=== PATIENT | female | born 1975 | race Caucasian/White ===

== ENCOUNTER 2022-06-24 01:53 | Inpatient (IN) | payer SELFPAY ==
[2022-06-24] VITALS (27 sets, daily range): BP systolic 95–133; BP diastolic 54–90; PULSE 46–80; RESP 12–22; TEMP 35.6–36.8; O2SAT 92–98; BMI 34.3
--- NOTE | 2022-06-24 02:07 | ECG_ITS ---
[facility] Test Date: 2022-06-24 Pat Name: Melina Ortiz Department: Room: Gender: Female Front Desk Admin: : 1975 Requested By: Yeyo Baxter Order Number: [id number] Pelaez MD: Krupa Welch M.D. Measurements Intervals [place] Rate: 58 P: 58 ID: [id number] QRS: -37 QRSD: 94 T: 117 QT: 413 QTc: 407 Interpretive Statements SINUS BRADYCARDIA POSSIBLE LEFT ATRIAL ENLARGEMENT [-0.1mV P-WAVE IN V1/V2] LEFT AXIS DEVIATION [QRS AXIS < -30] NONSPECIFIC ST & T-WAVE ABNORMALITY No previous ECG available for comparison Electronically Signed On 06-24-2022 8:38:18 DISH TECHNICIAN by Krupa Welch M.D. [id number]
--- NOTE | 2022-06-24 02:10 | XRR_ITS ---
PROCEDURE INFORMATION: Exam: XR Chest Exam date and time: 06/24/2022 2:18 AM Age: 46 years old Clinical indication: Pain; Chest pressure; Additional info: Cp TECHNIQUE: Imaging protocol: Radiologic exam of the chest. Views: 1 view. COMPARISON: No relevant prior studies available. FINDINGS: Lungs: Unremarkable. No consolidation. Pleural spaces: Unremarkable. No pleural effusion. No pneumothorax. Heart/Mediastinum: Unremarkable. No cardiomegaly. Bones/joints: Unremarkable. XR/XR chest 1V portable 22013 IMPRESSION: No acute findings.
[2022-06-24 02:19] LABS: Basophils % 0.5 %; Eosinophils # 0.3 10^3/uL (0.0-0.8); Eosinophils % 3.4 %; Hemoglobin 15.5 g/dL (11.5-15.3); Mean Corpuscular HGB Conc 32.3 g/dL (30.0-36.0); Mean Corpuscular Hemoglobin 29.8 pg (28.0-34.0); Mean Corpuscular Volume 92.3 fl (81-99); Mean Platelet Volume 9.6 fL (7.4-10.4); Monocytes # 0.4 10^3/uL (0.2-0.9); Monocytes % 5.3 %; Neutrophils # 3.95 10^3/uL (1.8-7.7); Neutrophils % 51.4 %; Nucleated Red Blood Cells % 0 %; Platelet Count 288 10^3/cmm (130-400); Red Cell Distribution Width 12.8 % (12.1-15.1); White Blood Count 7.7 10^3/uL (4.0-10.0)
--- NOTE | 2022-06-24 02:20 | ED_ITS ---
Documented by User: Yeyo Davis DO 06/24/22 18:43 HPI - Chest Pain General: Chief Complaint: Chest Pain Stated Complaint: CP Time Seen by Provider: 06/24/22 02:09 History of Present Illness: 46-year-old female complaining of chest discomfort while lying down this morning. This was around 1 AM. She evidently has a history of coronary disease with stents placed 5 years ago. She was given aspirin and nitroglycerin with some improvement by EMS in route. She still complains of pressure. No fever. MD complaint: chest pain Pertinent past history: coronary artery disease Onset (ago): minute(s) Timing of current episode: constant and still present Prior episodes: Yes ( heartburn on and off past 2 days) Onset: during rest Pain location: substernal Pain radiation: neck and jaw/teeth Severity: moderate Quality: aching and heaviness Relieving factors: nitroglycerin Exacerbating factors: nothing Associated symptoms: Reports diaphoresis, dyspnea and nausea; Deny abdominal pain, fever(s), leg edema, palpitations or vomiting Treatment prior to arrival: aspirin and nitroglycerin Review of Systems Const: Reports: diaphoresis; Denies: fever(s) Eyes: Reports: change in vision ENMT: Reports: throat pain Card: Denies: palpitations Resp: Reports: dyspnea GI: Reports: nausea; Denies: abdominal pain or vomiting [facility] ED PFSH: Medical History Coronary artery disease Obesity Tobacco use disorder Family History Father CAD (coronary artery disease) Social History Smoking and tobacco status: current every day smoker Alcohol intake: never Substance/Drug Use: never Female Reproductive History: Date of last menstrual period: 06/24/22 Physical Exam Const: COMMON NORMALS: no acute distress GENERAL APPEARANCE: cooperative; not ill appearing and not frail appearing HENMT: COMMON NORMALS: normocephalic, atraumatic and Normal external nose present HEAD & SCALP: normocephalic and atraumatic FACE & SINUS: normal facial exam and face symmetric NOSE: Normal external nose present Eye: COMMON NORMALS: Equal, round and reactive pupils present and EOMs intact bilaterally PUPIL: Yes Equal, round and reactive pupils present Neck/C-Spine: GENERAL: Yes trachea midline Chest: CHEST: Yes Symmetrical chest wall rise Resp: COMMON NORMALS: normal respiratory effort, No retractions, No use of accessory muscles and clear to auscultation bilaterally AUSCULTATION: clear to auscultation bilaterally Cardio: COMMON NORMALS: regular rate and regular rhythm RATE: regular rate RHYTHM: regular rhythm GI: COMMON NORMALS: Normal to inspection, nondistended, normoactive bowel sounds present Extremity: COMMON NORMALS: no pedal edema Neuro: JOSHUA COMA SCALE: document GCS findings [place] coma scale eye opening: Spontaneous [place] coma scale verbal response: Orientated Joshua coma scale motor response: Obey commands Joshua coma scale total score: 15 SENSORY EXAM: Yes extremities (intact) Psych: COMMON NORMALS: speech normal SPEECH: Yes normal speech Skin: COMMON NORMALS: no rashes or lesions noted GENERAL SKIN EXAM: no ra shes or lesions noted Course Vital Signs: Vital signs: Vital Signs Temperature 97.9 F 06/24/22 16:00 Pulse Rate 69 06/24/22 16:00 Respiratory Rate 18 06/24/22 16:00 Blood Pressure 105/60 06/24/22 16:00 Pulse Oximetry 98 06/24/22 16:00 Oxygen Delivery Me thod 06/24/22 16:00 MDM - Chest Pain Medical Decision Making Patient has been bradycardic while resting here. Rates in the mid 40s. Blood pressure at home 100/55. Saturation is 98%. Hemoglobin is 15.5. CBC otherwise normal. Her first troponin is 6. CK is 54. Other laboratory not remarkable. EKG shows sinus bradycardia with a slight left axis deviation. No acute ST change. Intervals are normal. Rate is 60. Second troponin is pending. Pain is resolved after morphine here. 2nd troponin is significantly elevated over the 1st. She is pain free now. She continues to smoke tobacco. This increases her risk of in-stent stenosis. She has also not been taking medication for secondary prevention,. She will be admitted. She is given plavix and lovenox for medical treatment of Non-Stemi and Will continue to follow troponin. Lab Data 06/24/22 02:05 06/24/22 02:05 Radiology Impressions Chest X-Ray 06/24/22 02:10 IMPRESSION: No acute findings. Laboratory Results WBC 7.7 10^3/uL (4.0-10.0) 06/24/22 02:05 RBC 5.20 10^6/uL (4.1-5.3) 06/24/22 02:05 Hgb 15.5 g/dL (11.5-15.3) H 06/24/22 02:05 Hct 48.0 % (37.0-47.0) H 06/24/22 02:05 MCV 92.3 fl (81-99) 06/24/22 02:05 MCH 29.8 pg (28.0-34.0) 06/24/22 02:05 MCHC 32.3 g/dL (30.0-36.0) 06/24/22 02:05 RDW 12.8 % (12.1-15.1) 06/24/22 02:05 Plt Count 288 10^3/cmm (130-400) 06/24/22 02:05 MPV 9.6 fL (7.4-10.4) 06/24/22 02:05 Neut % (Auto) 51.4 % 06/24/22 02:05 Lymph % (Auto) 39.0 % 06/24/22 02:05 [place] % (Auto) 5.3 % 06/24/22 02:05 Eos % (Auto) 3.4 % 06/24/22 02:05 Baso % (Auto) 0.5 % 06/24/22 02:05 Neut # (Auto) 3.95 10^3/uL (1.8-7.7) 06/24/22 02:05 Lymph # (Auto) 3.0 10^3/uL (0.8-4.8) 06/24/22 02:05 Merrick # (Auto) 0.4 10^3/uL (0.2-0.9) 06/24/22 02:05 Eos # (Auto) 0.3 10^3/uL (0.0-0.8) 06/24/22 02:05 Baso # (Auto) 0.0 10^3/uL (0.0-0.1) 06/24/22 02:05 Nucleated RBC % (auto) 0 % 06/24/22 02:05 Nucleated RBCs # 0.0 /100WBC 06/24/22 02:05 Sodium 134 mmol/L (136-145) L 06/24/22 02:05 Potassium 3.9 mmol/L (3.5-5.1) 06/24/22 02:05 Chloride 98 mmol/L (98-107) 06/24/22 02:05 Carbon Dioxide 26 mmol/L (22-29) 06/24/22 02:05 Anion Gap 13.9 (5-19) 06/24/22 02:05 BUN 18 mg/dL (6-20) 06/24/22 02:05 Creatinine 0.9 mg/dL (0.5-0.9) 06/24/22 02:05 GFR Calculation 67.4 mL/min (90-130) L 06/24/22 02:05 Glucose 162 mg/dL (65-115) H 06/24/22 02:05 Estimat Average Glucose 114 06/24/22 02:05 Hemoglobin A1c 5.6 % (4.0-6.0) 06/24/22 02:05 Calculated Osmolality 283 mOsm/kg (285-295) L 06/24/22 02:05 Calcium 9.4 mg/dL (8.5-10.5) 06/24/22 02:05 Total Bilirubin 0.2 mg/dL (0.15-1.2) 06/24/22 02:05 AST 18 U/L (0-32) 06/24/22 02:05 ALT 15 U/L (0-33) 06/24/22 02:05 Alkaline Phosphatase 98 U/L (35-105) 06/24/22 02:05 Creatine Kinase 54 U/L (26-192) 06/24/22 02:05 Troponin T Baseline 6 ng/L (0-10) 06/24/22 02:05 Troponin T 120 Minute 13.77 ng/L (0-10) H 06/24/22 04:27 Delta Troponin T 7.77 ABS# (0-10) 06/24/22 04:27 NT-Pro-B Natriuret Pep 36 pg/mL (0-125) 06/24/22 02:05 Total Protein 6.8 g/dL (6.6-8.7) 06/24/22 02:05 Albumin 4.4 g/dL (3.5-5.2) 06/24/22 02:05 Globulin 2.4 g/dL (1.3-4.6) 06/24/22 02:05 Triglycerides 87 mg/dL (0-150) 06/24/22 02:05 Cholesterol 369 mg/dL (0-200) H 06/24/22 02:05 LDL Cholesterol, Calc 279 mg/dL (50-129) H 06/24/22 02:05 HDL Cholesterol 73 mg/dL (60-100) 06/24/22 02:05 LDL/HDL Ratio 3.82 RATIO (0.00-3.22) H 06/24/22 02:05 Cholesterol/HDL Ratio 5.05 mg/dL (0.0-4.40) H 06/24/22 02:05 Discharge Plan Discharge Patient Disposition: Admitted As Inpatient Admit Provider: Sahil Hill Clinical Impression: Non-ST elevation myocardial infarction (NSTEMI), Coronary artery disease, Chest pain Condition: Stable Coding Level of Care Code ED Auditor Medical Claims for Chg Fwd Documented by User: Sahil Hill MD 06/24/22 03:14 HPI - Chest Pain General: Chief Complaint: Chest Pain Stated Complaint: CP Time Seen by Provider: 06/24/22 02:09 [facility] ED PFSH: Medical History Coronary artery disease Obesity Tobacco use disorder Family History Father CAD (coronary artery disease) Social History Smoking and tobacco status: current every day smoker Alcohol intake: never Substance/Drug Use: never Physical Exam Neuro: JOSHUA COMA SCALE: document GCS findings Joshua coma scale total score: 15 Course Vital Signs: Vital signs: Vital Signs Temperature 97.9 F 06/24/22 16:00 Pulse Rate 69 06/24/22 16:00 Respiratory Rate 18 06/24/22 16:00 Blood Pressure 105/60 06/24/22 16:00 Pulse Oximetry 98 06/24/22 16:00 Oxygen Delivery Me thod 06/24/22 16:00 MDM - Chest Pain Lab Data 06/24/22 02:05 06/24/22 02:05 Radiology Impressions Chest X-Ray 06/24/22 02:10 IMPRESSION: No acute findings. Laboratory Results WBC 7.7 10^3/uL (4.0-10.0) 06/24/22 02:05 RBC 5.20 10^6/uL (4.1-5.3) 06/24/22 02:05 Hgb 15.5 g/dL (11.5-15.3) H 06/24/22 02:05 Hct 48.0 % (37.0-47.0) H 06/24/22 02:05 MCV 92.3 fl (81-99) 06/24/22 02:05 MCH 29.8 pg (28.0-34.0) 06/24/22 02:05 MCHC 32.3 g/dL (30.0-36.0) 06/24/22 02:05 RDW 12.8 % (12.1-15.1) 06/24/22 02:05 Plt Count 288 10^3/cmm (130-400) 06/24/22 02:05 MPV 9.6 fL (7.4-10.4) 06/24/22 02:05 Neut % (Auto) 51.4 % 06/24/22 02:05 Lymph % (Auto) 39.0 % 06/24/22 02:05 Merrick % (Auto) 5.3 % 06/24/22 02:05 Eos % (Auto) 3.4 % 06/24/22 02:05 Baso % (Auto) 0.5 % 06/24/22 02:05 Neut # (Auto) 3.95 10^3/uL (1.8-7.7) 06/24/22 02:05 Lymph # (Auto) 3.0 10^3/uL (0.8-4.8) 06/24/22 02:05 [place] # (Auto) 0.4 10^3/uL (0.2-0.9) 06/24/22 02:05 Eos # (Auto) 0.3 10^3/uL (0.0-0.8) 06/24/22 02:05 Baso # (Auto) 0.0 10^3/uL (0.0-0.1) 06/24/22 02:05 Nucleated RBC % (auto) 0 % 06/24/22 02:05 Nucleated RBCs # 0.0 /100WBC 06/24/22 02:05 Sodium 134 mmol/L (136-145) L 06/24/22 02:05 Potassium 3.9 mmol/L (3.5-5.1) 06/24/22 02:05 Chloride 98 mmol/L (98-107) 06/24/22 02:05 Carbon Dioxide 26 mmol/L (22-29) 06/24/22 02:05 Anion Gap 13.9 (5-19) 06/24/22 02:05 BUN 18 mg/dL (6-20) 06/24/22 02:05 Creatinine 0.9 mg/dL (0.5-0.9) 06/24/22 02:05 GFR Calculation 67.4 mL/min (90-130) L 06/24/22 02:05 Glucose 162 mg/dL (65-115) H 06/24/22 02:05 Estimat Average Glucose 114 06/24/22 02:05 Hemoglobin A1c 5.6 % (4.0-6.0) 06/24/22 02:05 Calculated Osmolality 283 mOsm/kg (285-295) L 06/24/22 02:05 Calcium 9.4 mg/dL (8.5-10.5) 06/24/22 02:05 Total Bilirubin 0.2 mg/dL (0.15-1.2) 06/24/22 02:05 AST 18 U/L (0-32) 06/24/22 02:05 ALT 15 U/L (0-33) 06/24/22 02:05 Alkaline Phosphatase 98 U/L (35-105) 06/24/22 02:05 Creatine Kinase 54 U/L (26-192) 06/24/22 02:05 Troponin T Baseline 6 ng/L (0-10) 06/24/22 02:05 Troponin T 120 Minute 13.77 ng/L (0-10) H 06/24/22 04:27 Delta Troponin T 7.77 ABS# (0-10) 06/24/22 04:27 NT-Pro-B Natriuret Pep 36 pg/mL (0-125) 06/24/22 02:05 Total Protein 6.8 g/dL (6.6-8.7) 06/24/22 02:05 Albumin 4.4 g/dL (3.5-5.2) 06/24/22 02:05 Globulin 2.4 g/dL (1.3-4.6) 06/24/22 02:05 Triglycerides 87 mg/dL (0-150) 06/24/22 02:05 Cholesterol 369 mg/dL (0-200) H 06/24/22 02:05 LDL Cholesterol, Calc 279 mg/dL (50-129) H 06/24/22 02:05 HDL Cholesterol 73 mg/dL (60-100) 06/24/22 02:05 LDL/HDL Ratio 3.82 RATIO (0.00-3.22) H 06/24/22 02:05 Cholesterol/HDL Ratio 5.05 mg/dL (0.0-4.40) H 06/24/22 02:05 Discharge Plan Discharge Patient Disposition: Admitted As Inpatient Admit Provider: Sahil Hill Clinical Impression: Non-ST elevation myocardial infarction (NSTEMI), Coronary artery disease, Chest pain Condition: Stable Coding Level of Care Code ED Auditor Medical Claims for Radha De Santiago
[2022-06-24 02:42] LABS: Troponin(5th) Baseline 6 ng/L (0-10)
[2022-06-24 02:51] LABS: Alanine Aminotransferase 15 U/L (0-33); Albumin Level 4.4 g/dL (3.5-5.2); Alkaline Phosphatase 98 U/L (35-105); Aspartate Amino Transferase 18 U/L (0-32); Blood Urea Nitrogen 18 mg/dL (6-20); Calcium 9.4 mg/dL (8.5-10.5); Carbon Dioxide 26 mmol/L (22-29); Chloride 98 mmol/L (98-107); Creatine Phosphokinase 54 U/L (26-192); Globulin 2.4 g/dL (1.3-4.6); Glomerular Filtration Rate 67.4 mL/min (90-130); Glucose 162 mg/dL (65-115); NT Pro B Type Natriuretic Pept 36 pg/mL (0-125); Osmolality Calculated 283 mOsm/kg (285-295); Sodium 134 mmol/L (136-145); Total Bilirubin 0.2 mg/dL (0.15-1.2); Total Protein 6.8 g/dL (6.6-8.7)
[2022-06-24 02:56] LABS: Anion Gap 13.9 (5-19); Potassium 3.9 mmol/L (3.5-5.1)
[2022-06-24] MEDS: ondansetron 2 mg/ML SDV 2 mL 4 MG IVP (03:05)
[2022-06-24] MEDS: morphine 4 mg/mL SDV 1 mL IVP (03:05)
[2022-06-24 04:51] LABS: Troponin 5 2HR 13.77 ng/L (0-10)
[2022-06-24 04:59] LABS: Troponin 5 2HR Delta 7.77 ABS# (0-10)
--- NOTE | 2022-06-24 05:34 | PM.HP ---
Providers/Chief Complaint Admitting Physician: Sahil Hill MD Chief Complaint: CP History of Present Illness Melina Ortiz is a 46 year old female with a past medical history significant for coronary artery disease with history of 3 prior stents approximately 5 years ago, tobacco use disorder, and obesity who presents to the emergency department with substernal chest pressure. Patient reports onset at 1 AM this morning while lying down try to go to sleep. She endorses radiation to the left side of her neck. She endorses associated symptoms of nausea, shortness of breath, and numbness/tingling in all 4 extremities. She does report a history of a prior myocardial infarction approximately 5 years ago which was treated with 3 stents. She states that current symptoms are identical to her symptoms when she had her heart attack. In the emergency department, she was treated with morphine and states that this improved her pain. She is currently on about a 2 out of 10. Denies other alleviating or aggravating factors. Endorses family history of heart disease in her father and 3 of her 4 grandparents. Chart review shows that patient did have a mid RCA occlusion requiring PCI on 09/26/[address] Pozo. She reports that she continues to smoke. She reports that she smokes about 1 pack of cigarettes per day. She has somewhat a desire to quit but has never quit before. Smoking cessation discussed. Discussed harmful effects on her heart. Nicotine patch offered and declined. Review of Systems Narrative: A complete review of systems was obtained and is negative except as stated in HPI. PFSH Acute PFSH: Medical History Coronary artery disease Obesity Tobacco use disorder Family History Father CAD (coronary artery disease) Social History Smoking and tobacco status: current every day smoker Alcohol intake: never Substance/Drug Use: never Female Reproductive History: Date of last menstrual period: 06/24/22 Vitals/I&O/Wt Last Vital Signs Temp 96.1 F L 06/24/22 01:58 Pulse 46 L 06/24/22 04:36 Resp 19 H 06/24/22 04:36 BP 95/54 06/24/22 04:36 Pulse Ox 97 06/24/22 04:36 O2 Del Method 02/06/23 04:36 Weight last 48 hrs Weight 90.718 kg Physical Exam Narrative: General: Patient is awake. Appears fatigued. Head: Normocephalic. Atraumatic. EOM intact. Neck: No JVD. Cardiovascular: RRR. No gallops. No murmurs. No peripheral edema. Lungs: Clear to auscultation, no use of accessory muscles, no crackles or wheezes. Skin: No jaundice. No rashes. Abdomen: Normal bowel sounds, abdomen soft and nontender. Genito Urinary: Genital exam not performed since complaints not related. Rectal: Rectal exam not performed since no symptoms indicated blood loss. Extremities: No cyanosis or clubbing. Musculoskeletal: No swollen or erythematous joints. Neurological: Moves all 4 extremities. No myoclonus. Data 06/24/22 02:05 06/24/22 02:05 A&P Assessment and plan (1) Coronary artery disease: Chest pain concerning for unstable angina Started on therapeutic Lovenox in ED, will continue Loaded with Plavix in ED Plavix ordered Aspirin High intensity statin Nitroglycerin as needed Hold beta-paul due to bradycardia Echocardiogram Telemetry monitoring Trend troponins Bedrest Dissipate cardiology consultation N.p.o. pending cardiology evaluation Lipid panel and A1c for restratification Reconcile home medications once updated (2) Tobacco use disorder: Patient counseled on smoking cessation for 4 minutes Decline nicotine patch (3) Obesity: Would benefit from weight loss Plan DVT prophylaxis: Lovenox CODE STATUS: Full code Attestations Medical Necessity Statement*: Patient presents with chest pain consistent with prior CO symptoms with expected hospitalization to cross 2 midnights. Coding Level of Care Code Acute Code for [facility] Fwd Diagnoses Coronary artery disease I25.10 Tobacco use disorder F17.200 Obesity E66.9
[2022-06-24] MEDS: clopidogrel 300 mg Tablet PO (05:56)
[2022-06-24] MEDS: enoxaparin 100 mg/mL Syringe 90 MG SUBCUT (05:56)
--- NOTE | 2022-06-24 06:22 | USCV_ITS ---
Melina Ortiz Age: 46 Gender: F : 1975 Exam Date: 06/24/2022 13:45 Ordering Phys: Sahil Hill MD Technologist: Johnny Salas Exam Location: [facility] [place] Indication: Post cath BP: 122 / 59 HR: 60 Rhythm: Sinus Technical Quality: Adequate MEASUREMENTS (Male / Female) Normal Values 2D ECHO LV Diastolic Diameter PLAX 4.4 cm 4.2 - 5.9 / 3.9 - 5.3 cm LV Systolic Diameter PLAX 2.8 cm IVS Diastolic Thickness 1.3 cm 0.6 - 1.0 / 0.6 - 0.9 cm IVS Systolic Thickness 1.5 cm LVPW Diastolic Thickness 1.0 cm 0.6 - 1.0 / 0.6 - 0.9 cm LVPW Systolic Thickness 1.3 cm LVOT Diameter 2.1 cm LV Ejection Fraction 2D Teich 64.9 % LV Ejection Fraction MOD 2C 53.6 % LV Ejection Fraction 2C AL 55.2 % LA Diameter 3.9 cm Aorta at Sinotubular Diameter 2.7 cm M-MODE MV E Point Septal Separation 0.8 cm DOPPLER AV Peak Velocity 129.0 cm/s LVOT Peak Velocity 101.0 cm/s AV Area Cont Eq vti 2.6 cm squared AV Area Cont Eq pk 2.6 cm squared MV Area PHT 5.0 cm squared Mitral E to A Ratio 1.3 MV E' Velocity 43.0 cm/s Mitral E to MV E' Ratio 6.3 Mitral E to LV E' Lateral Ratio 5.3 Mitral E to LV E' Septal Ratio 7.7 TR Peak Velocity 165.0 cm/s TR Peak Gradient 10.9 mmHg TV Peak E Velocity 98.0 cm/s Right Atrial Pressure 3.0 mmHg Pulmonary Artery Systolic Pressu 13.9 mmHg PV Peak Velocity 67.0 cm/s RV Acceleration Time 0.2 s FINDINGS Left Ventricle Left ventricle is normal in size. LV systolic function is normal with EF of 50 to 55%. Mild hypokinesis of the inferolateral wall. Diastolic function is normal Right Ventricle Normal in size and function Right Atrium Normal in size Left Atrium Normal in size Mitral Valve Structurally normal mitral valve. Mild mitral regurgitation. Aortic Valve Structurally normal aortic valve. No significant stenosis or regurgitation. Tricuspid Valve Mild tricuspid regurgitation. Pulmonary artery systolic pressure is normal Pulmonic Valve Not well-visualized Pericardium Normal Aorta Normal in size IVC Not well visualized CONCLUSIONS LV systolic function is normal with EF of 50-55%. Mild hypokinesis of the inferolateral wall. Diastolic function is normal Mild mitral regurgitation Mild tricuspid regurgitation No comparison studies are available Guillermo Paulino MD (Electronically Signed) Final Date: 24 June 2022 19:15 S
[2022-06-24 06:58] LABS: Chol HDL Ratio 5.05 mg/dL (0.0-4.40); Cholesterol 369 mg/dL (0-200); HDL Cholesterol 73 mg/dL (60-100); LDL Cholesterol Calculated 279 mg/dL (50-129); LDL HDL Ratio 3.82 RATIO (0.00-3.22); Triglycerides 87 mg/dL (0-150)
[2022-06-24 07:07] LABS: Estmated Average Glucose 114; Hemoglobin A1C 5.6 % (4.0-6.0)
[2022-06-24] MEDS: atorvastatin 40 mg Tablet 80 MG PO ×2 (07:22→20:40)
[2022-06-24] MEDS: pneumococcal (23 valent) SDV 0.5 mL IM (07:41)
--- NOTE | 2022-06-24 07:58 | ECG_ITS ---
[facility] Test Date: 2022-06-24 Pat Name: Melina Ortiz Department: Room: 273 Gender: Female Electric Appliance Installer: : 1975 Requested By: Ahmet Choudhary Order Number: [id number] Latanya MD: Krupa Welch M.D. Measurements Intervals [place] Rate: 60 P: 48 TN: 153 QRS: -22 QRSD: 89 T: 88 QT: 411 QTc: 413 Interpretive Statements SINUS RHYTHM POSSIBLE LEFT ATRIAL ENLARGEMENT [-0.1mV P-WAVE IN V1/V2] INDETERMINATE AXIS INFERIOR MYOCARDIAL INFARCTION , PROBABLY OLD [40+ ms Q WAVE AND/OR ST/T ABNORMALITY IN II/aVF] Compared to ECG 06/24/2022 02:07:03 Indeterminate axis now present Myocardial infarct finding now present Sinus bradycardia no longer present Left-axis deviation no longer present T-wave abnormality no longer present Electronically Signed On 06-24-2022 8:40:29 REAL ESTATE ASSESSOR by Krupa Welch M.D. [id number] f
--- NOTE | 2022-06-24 08:03 | P.PN_ITS ---
Subjective Subjective: Patient was admitted earlier today. She came in with chest discomfort. She relates to me she has a recurrence of chest discomfort, consistent with previous myocardial infarction, pressure in her chest and up into her neck. She states it has been present for about 30 minutes. It is not as severe as when she came in. She previously had relief when aspirin, morphine, nitroglycerin were given. She relates that she has a past history of coronary disease, but has not taken any medicine in quite some time secondary loss of insurance and primary care provider. Medications: Reviewed: Yes Vitals/I&O/Wt Last Vital Signs Temp 98.2 F 06/24/22 07:46 Pulse 49 L 06/24/22 07:46 Resp 16 06/24/22 07:46 BP 107/57 06/24/22 07:46 Pulse Ox 95 06/24/22 07:46 O2 Del Method 06/24/22 07:46 Weight last 48 hrs Weight 90.718 kg Physical Exam Narrative: General exam is white female. She does not appear to be in any distress but relates chest discomfort, in the form of pressure Neck is supple Cardiovascular slightly bradycardic, regular, no murmur Lungs clear no wheezing or crackles Abdomen is soft with positive bowel sounds Extremities no cyanosis clubbing or edema, cap refill brisk Skin no obvious rash Data 06/24/22 02:05 06/24/22 02:05 Other data: I reviewed her EKG done stat, this demonstrates flipped T waves laterally. Some nonspecific ST-T wave changes. It is still sinus rhythm. There is no ST elevation. I reviewed her EKG on admission Previous laboratory I reviewed in full, including her 2-hour troponin. A&P Assessment and plan (1) Non-ST elevation myocardial infarction (NSTEMI): Patient presents with 2-hour troponin elevation doubled out of arrival. This c onstitutes a significant delta. She has been given Plavix, aspirin, statin. She has been fully anticoagulated. Beta-paul was not given secondary to bradycardia. She now has recurrence of her chest discomfort, in the form of pressure consistent with previous myocardial infarction. Cardiology consult currently. I called Dr. Sandoval to discuss the case, arrange the consultation. For now she will remain n.p.o. and will likely have a cath early today. Stat EKG now Nitroglycerin 0.4 mg sublingual now Await 6-hour troponin which is going to be drawn soon Morphine if discomfort does not improve Close follow-up of blood pressure with the above treatment (2) Unstable angina: See above (3) Hyperlipidemia: Lipitor initiated 80 mg daily. This is appropriate (4) Coronary artery disease: See notations under non-ST elevation myocardial infarction Plan Tobacco dependency. Confirmed need for nicotine patch. Attestations Medical Necessity Statement*: Needs continued hospital stay secondary to unstable angina. Critical Care Time: 31 Other Attestations: The high probability of a clinically significant, sudden or life threatening deterioration of the patient's [cardiac] system(s) required my full and direct attention, intervention and personal management. The critical care time is as shown. This time is in addition to time spent performing any reported procedures but includes the following: [x] Data and vital sign review and interpretation [x] Patient assessment, examination and intervention [x] Documentation [x] Medication orders and management Coding Level of Care Code Established Pt Critical Care >/= 30 minutes Critical care time (in minutes): 31 Patient Type Established Diagnoses Non-ST elevation myocardial infarction (NSTEMI) I21.4 Unstable angina I20.0 Hyperlipidemia E78.5 Coronary artery disease I25.10 Time Spent (min) 31
[2022-06-24] MEDS: nitroglycerin 0.4 mg sublingual Tablet SUBLINGUAL (08:07)
--- NOTE | 2022-06-24 08:07 | PM.CONSULT ---
Providers/Reason For Consult Consulting Physician/Specialty*: Guillermo Paulino MD/ Cardiology Reason for Consult*: Unstable angina Requesting Physician: Dr Fowler Attending Physician: Ahmet Fowler MD History of Present Illness History of Present Illness Melina Ortiz is a 46 year old female with past medical history of coronary artery disease with PCI of RCA in the past, tobacco abuse presented to the hospital with substernal chest pain. According to patient she has been having on and off chest discomfort episodes for the last few days however she woke up with chest discomfort last night with numbness and tingling in the arms. This was similar to her prior OK. In the emergency room her troponins were trended and 2-hour troponin was negative. EKG shows sinus rhythm with nonspecific ST-T wave changes. Review of Systems Narrative: CONSTITUTIONAL: No fever chills weight loss or gain or night sweats. [] HEENT: Normocephalic, atraumatic.[] RESPIRATORY: No cough, sputum, hemoptysis or wheezing.[] CARDIOVASCULAR:Chest pain GI: no nausea vomiting diarrhea. [] POLISHER BRASS: No numbness, tingling, weakness or loss of function in any part of the body. [] MUSCULOSKELETAL: No knee or joint pain or rashes. [] Medications/Allergies Allergies Allergy/AdvReac Type Severity Reaction Status Date / Time Penicillins Allergy ALGY-Anaphy Verified 06/24/22 06:46 laxis hydrocodone AdvReac ADR-Nausea Verified 06/24/22 06:46 Current Medications Generic Name Dose Route Start Last Admin Trade Name Freq PRN Reason Stop Dose Admin Atorvastatin Calcium 80 mg 06/24/22 06:25 06/24/22 07:22 Atorvastatin 40 Mg Tablet PO 80 mg BEDTIME BAILEE Administration Nitroglycerin 0.4 mg 06/24/22 06:22 06/24/22 08:07 Nitroglycerin 0.4 Mg Sublingual Tablet SUBLINGUAL 0.4 mg Q5M PRN Administration CHEST PAIN PFSH Acute PFSH: Medical History Coronary artery disease Obesity Tobacco use disorder Family History Father CAD (coronary artery disease) Social History (Reviewed 02/06/23 @ 11:20 by Stephen Srivastava Smoking and tobacco status: current every day smoker Alcohol intake: never Substance/Drug Use: never Female Reproductive History: Date of last menstrual period: 06/24/22 Vitals/I&O/Wt Last Vital Signs Temp 98.2 F 06/24/22 07:46 Pulse 49 L 06/24/22 07:46 Resp 16 06/24/22 07:46 BP 107/57 06/24/22 07:46 Pulse Ox 95 06/24/22 07:46 O2 Del Method 06/24/22 07:46 Weight last 48 hrs Weight 200 lb Physical Exam Narrative: GENERAL: Patient is alert, awake and oriented x3. [] NECK: No jugular vein distension. [] HEENT: No cyanosis. No icterus. No pallor. [] HEART: Regular S1 and S2. No murmur, rub or gallop. [] LUNGS: Clear to auscultate bilaterally. [] ABDOMEN: Soft CENTRAL NERVOUS SYSTEM: Grossly nonfocal. [] EXTREMITIES: Lower extremities with 1+ edema bilaterally. Pulses palpable in the lower extremities, both dorsalis pedis and posterior tibial. [] Data 06/24/22 02:05 06/24/22 02:05 A&P Assessment and plan (1) Unstable angina: (2) Tobacco use disorder: (3) Coronary artery disease: (4) Obesity: (5) Hyperlipidemia: Plan Patient has presented with worsening, typical chest pain consistent with unstable angina. Troponin is negative. 6-hour troponin is pending. Continue aspirin and Plavix. Continue anticoagulation. We will proceed with coronary angiogram with possible percutaneous coronary intervention. Risks and benefits of the procedure have been discussed with the patient. She understands the risks and benefits and wants to proceed. NPO Echocardiogram ordered Thank you for involving us with care of this patient. We will continue to follow. Please call with questions. Consult Attestations Medical Necessity Statement: Care expected to cross 2 midnights. Coding Level of Care Code Acute Code for Chg Fwd Diagnoses Unstable angina I20.0 Tobacco use disorder F17.200 Coronary artery disease I25.10 Obesity E66.9 Hyperlipidemia E78.5
[2022-06-24] MEDS: nitroglycerin 1 gm/inch oint Pkt 0.5 INCH TOPICAL ×3 (08:16→20:40)
--- NOTE | 2022-06-24 08:34 | XACV_ITS ---
Exam Room: [facility] Ht: 163 cm Wt: 91 kg BSA: 2.06 m2 Gender: Female : 1975 Any Known Allergies: Hydrocodone Exam Priority: Routine Procedure(s): Procedure Description: Diagnostic procedure Procedure Description: PCI procedure Procedure Description: Drug Eluting Coronary Stent Procedure Description: PTCA Procedure Description: Coronary Angiography Diagnostic Cath Status: Urgent Diagnostic Findings * INDICATION: Unstable angina. * Left Main has no significant disease. * Left Anterior Descending has mild luminal irregularities. Gives rise to small sized diagonal artery that has moderate ostial lesion. * Circumflex has no significant disease. * RCA has a patent prior mid vessel stent. At proximal edge of the stent in the mid Right Coronary Artery: obstructive 70% stenosis, YASMEEN: 3 flow. * Distal Right Coronary Artery: severe 90% stenosis, YASMEEN: 3 flow. * Coronary angiography shows right dominance. PCI Status: Urgent PCI Indication: Other Interventional Findings * Procedure detail: We engaged RCA with JR4 guide catheter. IV heparin was administered to maintain ACT above 250 S. 0.014 run-through guidewire was used to cross the stenosis and was put in distal vessel. We predilated with distal RCA stenosis with 2.5 x 12 mm semicompliant balloon. Was followed by predilation of mid RCA with 2.5 x 12 mm semicompliant balloon. We then proceeded with placement of 2.5 x 15 mm resolute [place] drug-eluting stent in distal RCA. We then placed 3.5 x 12 mm resolute [place] drug-eluting stent in mid RCA. At this time final angiogram was performed that showed excellent stent expansion, no residual stenosis and YASMEEN-3 flow. Guidewire and guide catheter were removed. Patient left the Flaking Roll Operator in a stable condition.. * Mid Right Coronary Artery: 70% stenosis treated with a AB TREK 2.50X12 RX BALLOON, and MDT R SANTA 3.5X12 SHEFALI. 0% residual stenosis, YASMEEN: 3 flow. * Distal Right Coronary Artery: 90% stenosis treated with a AB TREK 2.50X12 RX BALLOON, and MDT R SANTA 2.5X15 SHEFALI. 0% residual stenosis, YASMEEN: 3 flow. Conclusions 1. Severe mid RCA stenosis s/p successful revascularization with SHEFALI x1. Severe distal RCA stenosis s/p successful revascularization with SHEFALI x1. 2. Mid Right Coronary Artery was treated with a Balloon, and Drug Eluting Stent. 3. Distal Right Coronary Artery was treated with a Balloon, and Drug Eluting Stent. Recommendations * Dual antiplatelet therapy for at least 1 year. * High intensity statin therapy. * Aggressive risk factor modification. * Outpatient cardiology follow-up in 4-weeks. Interventional RX Recommendation: PCI w/o planned CABG Diagnostic RX Recommendation: PCI w/o planned CABG Anticoagulation: Heparin Pressures Phase:Rest AO : 97 / 63 ( 80 ) @ 9:31:00 AM 86 / 49 ( 66 ) @ 9:39:00 AM 91 / 60 ( 75 ) @ 9:41:00 AM 98 / 60 ( 77 ) @ 9:53:00 AM Clinical Evaluation EBL: 5mL-10mL Procedural Details Procedure Consent Obtained. Current Diagnosis : Chest Pain. Pre-Procedure Time Out. Identified patient by full name and date of as verbalized by the patient/guarantor. Does the consent match the physician's order: Yes. Accurate & Complete Informed Consent: Yes. Inpatient/Outpatient History & Physical on Chart: Yes. If H&P is completed, is and addenduem needed: No. Visualize and Verify Site with Patient/Guarantor: N/A. Relevant Radiology Images available: Yes. The risks, benefits, and alternatives of sedation and/or procedure were discussed by physician. The patient agrees to continue. Procedure started. [facility] Clinical Fraility Score: 3: Managing Well. Flaking Roll Operator Indications: Worsening Angina/Unstable Angina. Chest Pain Symptom Assessment: Typical Angina Symptoms. Cardiovascular Instability: No. Correct patient, site and procedure confirmed by cath team. PERRBIGG. Strong, equal hand wheelchair van operator first responder bilaterally. Lungs clear x 5 lobes. IV Site on Arrival: 20 gauge in the left anticubital. IV Fluids: 0.9% NaCl at KVO. 0 mL infused prior to cardiovascular lab director. Pre Procedural Pulses: bilateral dorsalis pedis was 2+. Pre Procedural Pulses: bilateral posterior tibial was 1+. Pre Procedural Pulses: bilateral radial was 3+. Oxygen started at 2liters/min via nasal canula. right groin was prepped with chloroprep then draped in the usual sterile fashion. right radial was prepped with chloroprep then draped in the usual sterile fashion. Physician notified. Patient's spouse in the Flaking Roll Operator waiting room. Dr. Hagan will update at the completion of the procedure. Equipment: 6F - Radial. Cardiac Cath Pack. ACIST Manifold Kit Model BT 2000. Heparinized Saline (2 units/mL), 1000 mL bag. Baseline sample Acquired. HR: 52 BPM. Isaac Logan RN circulating with Senait Lynn RN. Physician arrived. Physician scrubbed in. Immediate Pre-Procedure Time Out. Correct Patient: Yes; Correct Procedure: Yes; Correct Site: Yes; Correct Patient Position: Yes; Correct Supplies: Yes; Dried Flammable Prep: Yes; Blood Products Available: N/A. Lidocaine 1% infiltrated to the right radial. Lab notified this nurse that the 6 hour Delta Trop was 44.36. Dr. Paulino was made known and no orders received at this time. Unable to obtain radial access using ultrasound. attempting to gain access in the Femoral artery. Lidocaine 1% infiltrated to the right groin. Arterial access obtained with micropuncture set. A 5 gibraltarian JL4 catheter in over the exchange J wire. Multiple views taken of left coronary artery. Catheter removed over the exchange J wire. A 5 gibraltarian JR4 catheter in over the exchange J wire. Multiple views taken of right coronary artery. Catheter removed over the exchange J wire. 6 gibraltarian JR 4 guide catheter was inserted over the exchange J wire. Runthrough guidewire was advanced through the guide catheter to lesion in the distal RCA. Inflation number : 1 A AB TREK 2.50X12 RX BALLOON was prepped and advanced across the Dist RCA , then inflated to 6 HEATHER for 0:23 seconds. Inflation number: 2 The AB TREK 2.50X12 RX BALLOON was reinflated across the Dist RCA, to 6 HEATHER for 0:22 seconds. Inflation number: 1 The AB TREK 2.50X12 RX BALLOON was reinflated across the Mid RCA, to 8 HEATHER for 0:13 seconds. Balloon out. Results checked. Inflation Number : 3 A MDT R SANTA 2.5X15 SHEFALI -Lot Number# [id number] was prepped and advanced across the Dist RCA. The stent was deployed at 12 HEATHER for 0:21 seconds. Exp 2024-07-26. Stent balloon and wire out. Inflation Number : 2 A MDT R SANTA 3.5X12 SHEFALI -Lot Number# [id number] was prepped and advanced across the Mid RCA. The stent was deployed at 12 HEATHER for 0:20 seconds. Exp 2024-07-26. Inflation number: 3 The stent balloon was then re-inflated across the Mid RCA to 12 HEATHER for 0:14 seconds. Stent balloon out over wire. ACT drawn. Results 329 seconds. Therapeutic limits - pre-heparin administration 90-150 seconds and monitoring heparin during a vascular procedure >250 seconds. Wire out. Guide catheter out over the exchange J wire. A Right femoral angiogram was performed to determine safe placement of closure device. Angioseal placed without complications. No signs or symptoms of hematoma noted. Sterile dressing applied per usual sterile fashion. Lot # [id number]. Exp 2023-02-15. Lidocaine 1% infiltrated to the right groin. A Angio-Seal VIP ([place]) was successful obtaining hemostatsis at the Right Femoral artery insertion site. Post Procedure: Pulses reassessed and unchanged. PERRLA. Strong, equal hand wheelchair van operator first responder bilaterally. No VTE prophylaxis required. Medication's Wasted: Nitro = 49.8 mg. Medication's Wasted: Heparin = 4000 Units. Medication's Wasted: Other = Versed 1mg. Total IV fluids: 38 mL. PCI Indication: CAD (without ischemic symptoms). Post-op diagnosis: Severe stenosis of the Mid and Distal RCA S/P PCI. Complications: none. Estimated blood loss: 5mL-10mL. Responsiveness - Normal response to verbal stimuli; alert and oriented, PERRLA. Airway - Unaffected, no intervention required; spontaneous ventilation. Circulation: W/N/L, pulses unchanged. Nausea/Vomiting: No. Procedure completed. Patient transferred by bed to CPRU. Vital chart was stopped. Access Site Site: Right Femoral artery Sheath Size: 5 Fr Hemostasis Method: Angio-Seal VIP ([place]) Hemostasis Success: Successful Procedure Medications Start: 9:00 AM Stop: 9:00 AM Medication: Fentanyl Amount: 50 mcg Route: I.V. Start: 9:00 AM Stop: 9:00 AM Medication: Aspirin Amount: 325 mg Route: P.O. Start: 9:08 AM Stop: 9:08 AM Medication: Versed Amount: 1 mg Route: I.V. Start: 9:23 AM Stop: 9:23 AM Medication: Versed Amount: 1 mg Route: I.V. Start: 9:36 AM Stop: 9:36 AM Medication: Heparin Amount: 7000 units Route: I.V. Start: 9:51 AM Stop: 9:51 AM Medication: Nitrogylcerin Amount: 200 mcg Route: I.C. Start: 9:53 AM Stop: 9:53 AM Medication: Versed Amount: 1 mg Route: I.V. Start: 9:53 AM Stop: 9:53 AM Medication: Fentanyl Amount: 25 mcg Route: I.V. Start: 9:58 AM Stop: 9:58 AM Medication: Fentanyl Amount: 25 mcg Route: I.V. I, the attending physician, have reviewed and verified all procedure medications. Yes, all medications given per verbal order History/Risk Factors Hypertension: No Dyslipidemia: No Peripheral Arterial Disease (PAD): No Myocardial Infarction (WI): No Obesity: Yes Renal Disease: No Tobacco Use: Current/Recent(w/in 1 year) Prior Interventions PCI: No CABG: No Valve Surgery: No Report Signatures Finalized by Guillermo Paulino MD on 07/04/2022 06:15 PM
[2022-06-24 08:39] LABS: Troponin 5 6HR 50.36 ng/L (0-10)
--- NOTE | 2022-06-24 09:05 | W.PM.OPSUD ---
Surgery/Procedure H&P Update DATE OF PROCEDURE: June 24, 2022 DATE H&P PERFORMED: 06/24/22 H&P UPDATE INFORMATION: I have reviewed H&P completed within last 30 days, I have examined patient prior to procedure and No changes to prior documentation PREOP DIAGNOSIS: Unstable angina PRIMARY INDICATION FOR PROCEDURE: Unstable angina PLANNED PROCEDURE: Left heart cath with possible percutaneous coronary intervention PATIENT REASSESSED PRIOR TO SEDATION, WITH NO CHANGE NOTED: Yes PHYSICAL EXAM: alert, oriented x 3, clear to auscultation bilaterally and regular rate & rhythm AIRWAY EVAL/ANESTHESIA PLAN: normal airway, ASA III, Local Anesthesia, Risks, benefits & alternatives of sedation and/or procedure discussed and Patient agrees to continue as planned ADDITIONAL INFORMATION: Moderate sedation
[2022-06-24 09:18] LABS: Troponin 5 6HR Delta 44.36 ng/L (0-12)
--- NOTE | 2022-06-24 10:05 | W.PM.OPSUD ---
Surgery/Procedure H&P Update DATE OF PROCEDURE: June 24, 2022 DATE H&P PERFORMED: 06/24/22 H&P UPDATE INFORMATION: I have reviewed H&P completed within last 30 days, I have examined patient prior to procedure and No changes to prior documentation PREOP DIAGNOSIS: Unstable angina PRIMARY INDICATION FOR PROCEDURE: Unstable angina PLANNED PROCEDURE: Operation Date: 06/24/22 09:00 Proposed Procedures p Cardiac Catheterization(Not Applicable) - Guillermo Paulino M.D Possible percutaneous coronary intervention PATIENT REASSESSED PRIOR TO SEDATION, WITH NO CHANGE NOTED: Yes PHYSICAL EXAM: alert, oriented x 3, clear to auscultation bilaterally and regular rate & rhythm AIRWAY EVAL/ANESTHESIA PLAN: normal airway, ASA III, Local Anesthesia, Risks, benefits & alternatives of sedation and/or procedure discussed and Patient agrees to continue as planned ADDITIONAL INFORMATION: Moderate sedation
[2022-06-24] MEDS: nicotine 21 mg Patch 1 PATCH TRANSDERMA (11:17)
[2022-06-24] MEDS: sodium chloride 0.9% 1,000 ML 100 ML IV (11:20)
--- NOTE | 2022-06-24 11:42 | ECG_ITS ---
[facility] Test Date: 2022-06-24 Pat Name: Melina Ortiz Department: Room: 103 Gender: Female Director Family: : 1975 Requested By: Yeyo Baxter Order Number: [id number] Pelaez MD: Krupa Welch M.D. Measurements Intervals [place] Rate: 54 P: 38 CO: 155 QRS: -15 QRSD: 87 T: 66 QT: 391 QTc: 372 Interpretive Statements SINUS BRADYCARDIA POSSIBLE INFERIOR MYOCARDIAL INFARCTION , PROBABLY OLD [30 ms Q WAVE IN II/aVF] Compared to ECG 06/24/2022 08:05:28 Sinus rhythm no longer present Indeterminate axis no longer present Myocardial infarct finding still present Electronically Signed On 06-24-2022 22:10:05 ASSOCIATE PROFESSOR OF PSYCHOLOGY by Krupa Welch M.D. [email or web address]
[2022-06-24] MEDS: acetaminophen 325 mg Tablet 650 MG PO (19:22)
[2022-06-25] MEDS: nitroglycerin 1 gm/inch oint Pkt 0.5 INCH TOPICAL ×2 (02:13→08:40)
[2022-06-25 04:00] VITALS: BP 112/62; PULSE 67; RESP 16; TEMP 36.7; O2SAT 95
[2022-06-25 05:35] LABS: Blood Urea Nitrogen 12 mg/dL (6-20); Calcium 8.5 mg/dL (8.5-10.5); Carbon Dioxide 24 mmol/L (22-29); Chloride 106 mmol/L (98-107); Glomerular Filtration Rate 107.6 mL/min (90-130); Glucose 103 mg/dL (65-115); Magnesium 1.8 mg/dL (1.7-2.3); Osmolality Calculated 284 mOsm/kg (285-295); Phosphorus 2.8 mg/dL (2.5-4.5); Sodium 137 mmol/L (136-145)
[2022-06-25 05:41] LABS: Anion Gap 11.2 (5-19)
[2022-06-25 05:42] LABS: Potassium 4.2 mmol/L (3.5-5.1)
[2022-06-25 05:54] VITALS: PULSE 77
--- NOTE | 2022-06-25 06:42 | PM.PN ---
Subjective Subjective: Patient is doing well. no complaints of chest pain. Vitals/I&O/Wt Last Vital Signs Temp 98.1 F 06/25/22 04:00 Pulse 77 06/25/22 05:54 Resp 16 06/25/22 04:00 BP 112/62 06/25/22 04:00 Pulse Ox 95 06/25/22 04:00 O2 Del Method 06/25/22 04:00 06/24/22 06/24/22 06/25/22 14:59 22:59 06:59 Intake Total 300 / 300 590 / 890 1272.75 / 2162.75 Balance 300 / 300 590 / 890 1272.75 / 2162.75 Weight last 48 hrs Weight 200 lb Physical Exam Narrative: GENERAL: Patient is alert, awake and oriented x3. [] NECK: No jugular vein distension. [] HEENT: No cyanosis. No icterus. No pallor. [] HEART: Regular S1 and S2. No murmur, rub or gallop. [] LUNGS: Clear to auscultate bilaterally. [] ABDOMEN: Soft CENTRAL NERVOUS SYSTEM: Grossly nonfocal. [] EXTREMITIES: Lower extremities with 1+ edema bilaterally. Pulses palpable in the lower extremities, both dorsalis pedis and posterior tibial. [] Data 06/24/22 02:05 06/25/22 04:37 A&P Assessment and plan (1) Unstable angina: (2) Tobacco use disorder: (3) Coronary artery disease: (4) Obesity: (5) Hyperlipidemia: Plan Patient had severe mid and distal RCA stenosis for which she underwent successful revascularization with SHEFALI x2. We will continue aspirin and Plavix for at least 1 year High intensity statin therapy. Her cholesterol level is high. Thank you for involving us with care of this patient. Patient is stable to be discharged from cardiology standpoint. Please call with questions. Attestations Medical Necessity Statement*: Care expected to cross 2 midnights Coding Level of Care Code Acute Code for g Fwd Diagnoses Unstable angina I20.0 Tobacco use disorder F17.200 Coronary artery disease I25.10 Obesity E66.9 Hyperlipidemia E78.5
[2022-06-25 07:14] VITALS: BP 115/76; PULSE 76; RESP 22; TEMP 36.3; O2SAT 95
[2022-06-25] MEDS: aspirin 81 mg EC Tablet PO (08:40)
[2022-06-25] MEDS: nicotine 21 mg Patch 1 PATCH TRANSDERMA (08:40)
[2022-06-25] MEDS: clopidogrel 75 mg Tablet PO (08:41)
--- NOTE | 2022-06-25 09:22 | PM.DCS ---
Discharge Providers Date of Admission: 06/24/22 06:07 Date of Discharge: June 25, 2022 Attending Provider at Admission: Sahil Hill MD Attending Provider at Discharge: Ahmet Fowler MD Diagnoses at Discharge Discharge Diagnosis (1) Unstable angina: Status: Acute (2) Tobacco use disorder: Status: Acute (3) Coronary artery disease: Status: Acute (4) Obesity: Status: Acute (5) Hyperlipidemia: Status: Acute Reason for Visit Reason for Visit: CP Hospital Course Hospital Course Melina is a 46-year-old white female who presented to the emergency department with complaints of chest discomfort. She was noted to have a positive delta. She was given full dose anticoagulation, aspirin, Plavix, and statin. She had a prior history of RCA stent. Cardiology was consulted. No ST elevation was present. She was thought to have unstable angina, and was taken for angiogram on June 24. This demonstrated severe RCA disease, which required 2 drug-eluting stents. On June 25 she was stable, and able to be discharged home. She was told not to smoke, take all medicines, risks and benefits as well as importance of Plavix were discussed. She will follow-up with cardiology as well as her primary care provider which was arranged. She was not given a beta-paul secondary to bradycardia in the hospital. Physical Exam Narrative: General exam no distress Neck is supple Cardiovascular regular rate and rhythm Lungs clear Abdomen is soft Extremities no cyanosis clubbing or edema, right wrist without significant hematoma. Discharge Data Studies Completed and Pending Completed Studies During Hospitalization Category Date Time Status XR chest 1V portable [id number] Stat Exams 06/24/22 02:10 Completed CV. echo complete* [id number] Routine Ultrasound 06/24/22 06:22 Completed Pending at discharge Category Date Time Status CLINICAL ACCOUNT SPECIALIST request for service Routine Exams 06/24/22 08:34 Taken Radiology Impressions Chest X-Ray 06/24/22 02:10 IMPRESSION: No acute findings. Laboratory Results WBC 7.7 10^3/uL (4.0-10.0) 06/24/22 02:05 RBC 5.20 10^6/uL (4.1-5.3) 06/24/22 02:05 Hgb 15.5 g/dL (11.5-15.3) H 06/24/22 02:05 Hct 48.0 % (37.0-47.0) H 06/24/22 02:05 MCV 92.3 fl (81-99) 06/24/22 02:05 MCH 29.8 pg (28.0-34.0) 06/24/22 02:05 MCHC 32.3 g/dL (30.0-36.0) 06/24/22 02:05 RDW 12.8 % (12.1-15.1) 06/24/22 02:05 Plt Count 288 10^3/cmm (130-400) 06/24/22 02:05 MPV 9.6 fL (7.4-10.4) 06/24/22 02:05 Neut % (Auto) 51.4 % 06/24/22 02:05 Lymph % (Auto) 39.0 % 06/24/22 02:05 [place] % (Auto) 5.3 % 06/24/22 02:05 Eos % (Auto) 3.4 % 06/24/22 02:05 Baso % (Auto) 0.5 % 06/24/22 02:05 Neut # (Auto) 3.95 10^3/uL (1.8-7.7) 06/24/22 02:05 Lymph # (Auto) 3.0 10^3/uL (0.8-4.8) 06/24/22 02:05 [place] # (Auto) 0.4 10^3/uL (0.2-0.9) 06/24/22 02:05 Eos # (Auto) 0.3 10^3/uL (0.0-0.8) 06/24/22 02:05 Baso # (Auto) 0.0 10^3/uL (0.0-0.1) 06/24/22 02:05 Nucleated RBC % (auto) 0 % 06/24/22 02:05 Nucleated RBCs # 0.0 /100WBC 06/24/22 02:05 Sodium 137 mmol/L (136-145) 06/25/22 04:37 Potassium 4.2 mmol/L (3.5-5.1) 06/25/22 04:37 Chloride 106 mmol/L (98-107) 06/25/22 04:37 Carbon Dioxide 24 mmol/L (22-29) 06/25/22 04:37 Anion Gap 11.2 (5-19) 06/25/22 04:37 BUN 12 mg/dL (6-20) 06/25/22 04:37 Creatinine 0.6 mg/dL (0.5-0.9) 06/25/22 04:37 GFR Calculation 107.6 mL/min (90-130) 06/25/22 04:37 Glucose 103 mg/dL (65-115) 06/25/22 04:37 Estimat Average Glucose 114 06/24/22 02:05 Hemoglobin A1c 5.6 % (4.0-6.0) 06/24/22 02:05 Calculated Osmolality 284 mOsm/kg (285-295) L 06/25/22 04:37 Calcium 8.5 mg/dL (8.5-10.5) 06/25/22 04:37 Phosphorus 2.8 mg/dL (2.5-4.5) 06/25/22 04:37 Magnesium 1.8 mg/dL (1.7-2.3) 06/25/22 04:37 Total Bilirubin 0.2 mg/dL (0.15-1.2) 06/24/22 02:05 AST 18 U/L (0-32) 06/24/22 02:05 ALT 15 U/L (0-33) 06/24/22 02:05 Alkaline Phosphatase 98 U/L (35-105) 06/24/22 02:05 Creatine Kinase 54 U/L (26-192) 06/24/22 02:05 Troponin T Baseline 6 ng/L (0-10) 06/24/22 02:05 Troponin T 120 Minute 13.77 ng/L (0-10) H 06/24/22 04:27 Delta Troponin T 7.77 ABS# (0-10) 06/24/22 04:27 Troponin T Hi Sens 6Hr 50.36 ng/L (0-10) H 06/24/22 08:10 Troponin T Hi Sens 6Hr Delta 44.36 ng/L (0-12) H* 06/24/22 08:10 NT-Pro-B Natriuret Pep 36 pg/mL (0-125) 06/24/22 02:05 Total Protein 6.8 g/dL (6.6-8.7) 06/24/22 02:05 Albumin 4.4 g/dL (3.5-5.2) 06/24/22 02:05 Globulin 2.4 g/dL (1.3-4.6) 06/24/22 02:05 Triglycerides 87 mg/dL (0-150) 06/24/22 02:05 Cholesterol 369 mg/dL (0-200) H 06/24/22 02:05 LDL Cholesterol, Calc 279 mg/dL (50-129) H 06/24/22 02:05 HDL Cholesterol 73 mg/dL (60-100) 06/24/22 02:05 LDL/HDL Ratio 3.82 RATIO (0.00-3.22) H 06/24/22 02:05 Cholesterol/HDL Ratio 5.05 mg/dL (0.0-4.40) H 06/24/22 02:05 Vitals Last Vital Signs Temp 97.4 F L 06/25/22 07:14 Pulse 76 06/25/22 07:14 Resp 22 H 06/25/22 07:14 BP 115/76 06/25/22 07:14 Pulse Ox 95 06/25/22 07:14 O2 Del Method 06/25/22 07:14 Discharge Plan Discharge Patient Disposition: Home Condition: Stable Prescriptions: New aspirin 81 mg Tablet,Delayed Release (Dr/Ec) 81 mg PO DAILY Qty: 30 0RF atorvastatin 40 mg Tablet 80 mg PO BEDTIME Qty: 30 0RF clopidogrel 75 mg Tablet 75 mg PO DAILY Qty: 30 11RF No Action No Known Home Medications Discharge Orders: Discharge Order (Routine); Ordered 06/25/22 Ordered By: Ahmet Fowler Referrals: Guillermo Paulino M.D [Physician] - 1 week (Initial follow-up with Renea Zapata) Leana Barnett DO [Physician] - 07/02/22 10:00 am (Please arrive at 10:00. For sliding scale application, please bring your 2020 taxes and a minimum of $30. If you have any questions, please call the clinic. ) Discharge Diet: Cardiac Discharge Activity: Increase activity as tolerated Patient Instructions: Coronary Angioplasty (DC), Opioid Safety Activity Restrictions/Additional Instructions: Stop smoking Take all medicine as prescribed. Do not stop Plavix without discussing with cardiology Follow-up with cardiology 1 week Follow-up primary care provider 3 to 5 days Patient's Health Concerns: Chest pain Assessment: Unstable angina Plan of Treatment: Coronary stenting, medication treatment Discharge Attestations Time Spent in Discharge Care*: greater than 30 min Quality Metrics Clinical Quality Measures [ No reported AMI, CVA or VTE this stay] Coding Level of Care Code 67849 Total time (in minutes) for Discharge: 36 Diagnoses Unstable angina I20.0 Tobacco use disorder F17.200 Coronary artery disease I25.10 Obesity E66.9 Hyperlipidemia E78.5
[2022-06-25 09:32] VITALS: BP 115/76; PULSE 76; RESP 18; TEMP 36.9; O2SAT 95
--- NOTE | 2022-06-25 10:36 | PC.CHAP ---
Pastoral Care Encounter/Spiritual Assessment Type of Contact [] Declined road contractor visit [] Patient/Family/Request visit [] Outpatient visit [] Follow-up visit [] Physician referral [] Code/Alert [x] Routine visit [] Staff referral [] Actively dying [] Patient sleeping [] Family support [] [] Out of room [] Palliative care [] [] Receiving care in room [] Pre-surgical visit [] Trauma [] Long length of stay [] ICU visit [] Other: Relational/Emotional Strength [x] Patient feels connected with others/family/visitors/staff [] Distress [] Loneliness/isolation [] Abandonment Spirituality of Patient [] Person of Terri [] Attends [employer] of their Terri [] Believes in Prayer [] Reads Bible or Latter-Day materials [x] There are Spiritual issues to be addressed Boiler Mechanic Interventions [] Prayer [x] Active listening [x] Non-anxious presence [] Spiritual/emotional support [] Crisis/trauma care [] Spiritual counseling [] Bereavement support [] Provided bereavement packet [] Provided Bible/devotional materials [] Provided toy/stuffed animal, coloring book to patient or family member [] Provided Communion [] Anointing/[place] [] Salvation [x] Completed spiritual assessment [] Other: Impact on Illness or Injury [] Angry [] Fearful [] Anxious [] Often cries [] Exhaustion [] Unable to work [] Unable to attend roman catholic [] Unable to walk/stand [] Unable to read [] Unable to drive [] Unable to eat/drink [] Unable to sleep [] Unable to be with family [] Patient intubated [] Other: Summary cordially declined prayer Time spent with patient 5 min
--- NOTE | 2022-06-25 13:11 | PC.NURSE ---
Patient education provided iv removed patient left via PV with .
== END 2022-06-25 13:16 | disposition home or self-care (01) | DRG 247 ==
LOC: ER 06:05 → MEDSURG 06:07 → CSU 09:57
PROVIDERS: Internal Medicine; Admitting Provider Internal Medicine; Emergency Provider Emergency Medicine; Visit Provider Internal Medicine
PROC: 027035Z Dilation of Coronary Artery, One Artery with Two Drug-eluting Intraluminal Devices, Percutaneous Approach (ICD-10-PCS; principal; 2022-06-24 09:00)
PROC: 027035Z Dilation of Coronary Artery, One Artery with Two Drug-eluting Intraluminal Devices, Percutaneous Approach (ICD-10-PCS; 2022-06-24 09:00)
DX: I25.110 Atherosclerotic heart disease of native coronary artery with unstable angina pectoris (principal); E78.5 Hyperlipidemia, unspecified; E66.9 Obesity, unspecified; R77.8 Other specified abnormalities of plasma proteins; F17.210 Nicotine dependence, cigarettes, uncomplicated; I25.2 Old myocardial infarction; Z68.34 Body mass index [BMI] 34.0-34.9, adult; Z95.5 Presence of coronary angioplasty implant and graft; Z82.49 Family history of ischemic heart disease and other diseases of the circulatory system; Z91.14 Patient's other noncompliance with medication regimen; Z59.7 Insufficient social insurance and welfare support
CPT/HCPCS: 36415; 71045; 80048; 80053; 80061; 82550; 83036; 83735; 83880; 84100; 84484; 85025; 85347; 90471; 90686; 90732; 93005; 93306; 93454; 96372; 96374; 96375; 99152; 99153; 99285; C1725; C1760; C1769; C1874; C1887; C1894; C9600; G0269; J1644; J1650; J2250; J2270; J2405; J3010; J3490; J7030; Q9967

== ENCOUNTER → 2022-07-04 16:23 | Outpatient (BNVA) | payer SELFPAY | PROVIDERS: Visit Provider Nurse Practitioner Family | DX: I25.10 Atherosclerotic heart disease of native coronary artery without angina pectoris (principal) | CPT/HCPCS: 36415; 80048 ==

== ENCOUNTER 2023-05-29 13:35 | Outpatient (RCR) | payer OTHER, SELFPAY | END 2023-06-18 23:59 | disposition home or self-care (01) | LOC: SPT 13:35 | PROVIDERS: PCP Family Medicine; Visit Provider Family Medicine | DX: N39.3 Stress incontinence (female) (male) (principal) | CPT/HCPCS: 97161 ==

== ENCOUNTER 2023-05-30 07:38 | Outpatient (CLI) | payer OTHER, SELFPAY ==
--- NOTE | 2023-05-30 07:44 | MM_ITS ---
WS: [id number] SCREENING DIGITAL TOMOSYNTHESIS MAMMOGRAM WITH CAD HISTORY: SCREENING COMPARISON: 10/08/2018 Bilateral CC and MLO with tomosynthesis views submitted. Synthetic mammography reviewed. Computer aid ed detection analyzed. Breast composition: The breasts are almost entirely fatty. No suspicious masses, microcalcifications or architectural distortion. IMPRESSION: MM/[place] [id number] BI-RADS: 1-Negative FOLLOW UP: 1 Year Follow-up
== END 2023-05-30 07:39 | disposition home or self-care (01) ==
LOC: RAD 07:39
PROVIDERS: PCP Family Medicine; Visit Provider Family Medicine
DX: Z12.31 Encounter for screening mammogram for malignant neoplasm of breast (principal)
CPT/HCPCS: 77063; 77067